=== PATIENT | female | born 1960 | race Caucasian/White ===

== ENCOUNTER 2017-07-22 06:53 | Day surgery (SDC) | payer OTHER ==
[2017-07-22] MEDS ORDERED: LIDOCAINE 2% (SDV) 5 ML INJ (09:19)
[2017-07-22] MEDS ORDERED: PROPOFOL 60 ML (09:19)
== END 2017-07-22 10:10 | disposition home or self-care (01) ==
LOC: GIL 06:53
DX: Z12.11 Encounter for screening for malignant neoplasm of colon (principal); K64.8 Other hemorrhoids; K57.30 Diverticulosis of large intestine without perforation or abscess without bleeding; I10 Essential (primary) hypertension; E03.9 Hypothyroidism, unspecified; E66.9 Obesity, unspecified; Z68.36 Body mass index [BMI] 36.0-36.9, adult
CPT/HCPCS: 45378